=== PATIENT | female | born 1965 | race African-American/Black ===

== ENCOUNTER 2022-05-24 05:32 | Inpatient (IN) | payer MEDICAID, OTHER ==
[~2022-05-24] VITALS: Ht 167.6 cm; Wt 105.7 kg
[~2022-05-24 05:32] MED LIST: ALBUTEROL INH; ATROVENT INH; DOCU-138 PO; FERR142T6 PO; FLUC100T42 MT; FURO80TA3 PO; HYDR-1348 PO; HYDR-4001 MT; LEVO100T9 PO; LEVO500T2 PO; LISI10TA26 PO; P20 PO; POTA10CA42 PO; TOPUD PO
[2022-05-24 09:34] LABS: BASOPHILS % 0.2 % (0.0-2.0); EOSINOPHILS % 0.1 % (0.0-5.0); HEMATOCRIT. 36.4 % (36.0-48.0); HEMOGLOBIN. 12.1 g/dL (12.0-16.0); LYMPHOCYTES % 12.8 % (20.0-50.0); MEAN CORPUSCULAR HEMOGLOBIN 30.1 pg (28.0-32.0); MEAN CORPUSCULAR VOLUME 90.6 fL (81.0-99.0); MEAN PLATELET VOLUME 7.4 fl (7.4-10.4); NEUTROPHILS % 81.9 % (40.0-76.0); PLATELET 194 x1000/uL (130-400); RED BLOOD CELL COUNT 4.02 mill/uL (4.2-5.4); RED CELL DISTRIBUTION WIDTH 24.5 % (11.6-14.6)
[2022-05-24 10:13] LABS: PLATELET ESTIMATE NORMAL
[2022-05-24] MEDS ORDERED: PIPERACILLIN/TAZ 3.375G PREMIX 50 ML IV ONE (10:15)
[2022-05-24] MEDS ORDERED: VANCOMYCIN 1G PREMIX 200 ML IV ONE (10:15)
[2022-05-24] MEDS ORDERED: KETOROLAC 30MG/ML VIAL IV ONE (11:15)
[2022-05-24 12:00] VITALS: BP 135/77
[2022-05-24 14:00] VITALS: BP 135/77
[2022-05-24] MEDS ORDERED: IPRATROPIUM/ALBUTEROL 0.5-3(2.5)MG/3ML NEB HHN PRN (14:30)
[2022-05-24] MEDS ORDERED: DOCUSATE SODIUM 100MG CAPSULE PO PRN (14:30)
[2022-05-24] MEDS ORDERED: CLONIDINE 0.1MG TABLET PO PRN (14:30)
[2022-05-24] MEDS ORDERED: ACETAMINOPHEN 325MG TABLET PO PRN (14:30)
[2022-05-24] MEDS ORDERED: ENOXAPARIN 40MG/0.4ML SYR SUBCUT SCH (14:30)
[2022-05-24] MEDS ORDERED: ONDANSETRON HCL 4MG/2ML INJ IV PRN (14:30)
[2022-05-24] MEDS ORDERED: MAGNESIUM/ALUMINUM HYDROXIDE/SIMETHICONE 30ML UDC PO PRN (14:30)
[2022-05-24] MEDS: HYDROCODONE/ACETAMINOPHEN 5/325MG TABLET PO PRN ×2 (15:03→20:38)
[2022-05-24 15:24] LABS: INR 1.2
[2022-05-24 16:00] VITALS: BP 133/75
[2022-05-24] MEDS ORDERED: NALOXONE HCL 0.4MG/ML VIAL IV PRN (16:00)
[2022-05-24 17:18] LABS: CHLORIDE 104 mEq/L (98-107)
[2022-05-24] MEDS: ENOXAPARIN 30MG/0.3ML SYR SUBCUT SCH (19:11)
[2022-05-24] MEDS ORDERED: POTASSIUM CHLORIDE INJ 40 MEQ in DEXT 5% WATER 500 ML IV ONE (19:30)
[2022-05-24] MEDS ORDERED: POTASSIUM CHLORIDE 20MEQ TABLET SR PO NR (19:45)
[2022-05-24 19:52] VITALS: BP 118/68
[2022-05-24] MEDS ORDERED: VANCOMYCIN 750MG PREMIX 150 ML IV NR (21:00)
[2022-05-24] MEDS: PIPERACILLIN/TAZOBACTAM 3.375G in DEXT 5% WATER 50ML IV SCH (21:15)
[2022-05-24] MEDS: KCL 20MEQ/100ML X 2 FOR TOTAL KCL 40MEQ/200ML IV SCH ×2 (21:15→23:05)
[2022-05-24] MEDS ORDERED: PIPERACILLIN/TAZOBACTAM 3.375GM/50ML PREMIX IV ONE (22:00)
[2022-05-25] VITALS: BP 118/67
[2022-05-25] MEDS: HYDROCODONE/ACETAMINOPHEN 5/325MG TABLET PO PRN ×4 (02:36→23:08)
[2022-05-25 04:00] VITALS: BP 95/61
[2022-05-25] MEDS: ENOXAPARIN 30MG/0.3ML SYR SUBCUT SCH ×2 (06:39→18:15)
[2022-05-25] MEDS: PIPERACILLIN/TAZOBACTAM 3.375G in DEXT 5% WATER 50ML IV SCH ×3 (06:39→22:00)
[2022-05-25] MEDS: OMEPRAZOLE 20MG CAPSULE EXTENDED RELEASE PO SCH ×2 (07:12→08:51)
[2022-05-25 08:18] VITALS: BP 130/76
[2022-05-25] MEDS ORDERED: VANCOMYCIN 1G PREMIX 200 ML IV SCH (09:00)
[2022-05-25 11:10] LABS: HDL CHOLESTEROL 32 mg/dL (40-59); LDL CHOLESTEROL 29 mg/dL (5-100); T4 FREE 0.28 ng/dL (0.76-1.46)
[2022-05-25 12:00] VITALS: BP_SYST 131; BP_SYST 160; BP_DIAS 104; BP_DIAS 68
[2022-05-25] MEDS ORDERED: LIDOCAINE HCL 1% 10 MG/ML 10ML VIAL ONE (13:41)
[2022-05-25] MEDS ORDERED: LIDOCAINE HCL 1% 30ML VIAL (10MG/ML) ONE (14:04)
[2022-05-25 16:00] VITALS: BP 136/81
[2022-05-25 17:57] LABS: BASOPHILS % 0.2 % (0.0-2.0); EOSINOPHILS % 0.1 % (0.0-5.0); HEMATOCRIT. 33.4 % (36.0-48.0); LYMPHOCYTES % 20.7 % (20.0-50.0); MEAN CORPUSCULAR HEMOGLOBIN 30.9 pg (28.0-32.0); MEAN CORPUSCULAR VOLUME 93.8 fL (81.0-99.0); MEAN PLATELET VOLUME 7.1 fl (7.4-10.4); MONOCYTES % 7.5 % (2.0-8.0); NEUTROPHILS % 71.5 % (40.0-76.0); PLATELET 113 x1000/uL (130-400); RED BLOOD CELL COUNT 3.56 mill/uL (4.2-5.4); RED CELL DISTRIBUTION WIDTH 23.4 % (11.6-14.6)
[2022-05-25 18:19] LABS: CHLORIDE 102 mEq/L (98-107)
[2022-05-25] MEDS ORDERED: POTASSIUM CHLORIDE 20MEQ TABLET SR PO NR (20:00)
[2022-05-26] MEDS: ENOXAPARIN 30MG/0.3ML SYR SUBCUT SCH ×2 (06:00→19:01)
[2022-05-26] MEDS: PIPERACILLIN/TAZOBACTAM 3.375G in DEXT 5% WATER 50ML IV SCH ×3 (07:06→21:36)
[2022-05-26] MEDS ORDERED: LEVOTHYROXINE SODIUM 100MCG TABLET PO SCH (07:20)
[2022-05-26 07:51] LABS: BASOPHILS % 0.1 % (0.0-2.0); EOSINOPHILS % 0.4 % (0.0-5.0); HEMATOCRIT. 28.3 % (36.0-48.0); HEMOGLOBIN. 9.6 g/dL (12.0-16.0); LYMPHOCYTES % 23.5 % (20.0-50.0); MEAN CORPUSCULAR HEMOGLOBIN 30.7 pg (28.0-32.0); MEAN CORPUSCULAR VOLUME 90.5 fL (81.0-99.0); MEAN PLATELET VOLUME 7.5 fl (7.4-10.4); MONOCYTES % 8.3 % (2.0-8.0); NEUTROPHILS % 67.7 % (40.0-76.0); PLATELET 123 x1000/uL (130-400); RED BLOOD CELL COUNT 3.13 mill/uL (4.2-5.4); RED CELL DISTRIBUTION WIDTH 23.7 % (11.6-14.6)
[2022-05-26 08:00] VITALS: BP 136/82
[2022-05-26 08:52] LABS: PHOSPHORUS 1.7 mg/dL (2.5-4.9)
[2022-05-26] MEDS ORDERED: POTASSIUM CHLORIDE 20MEQ TABLET SR PO NR (09:30)
[2022-05-26] MEDS: LEVOTHYROXINE SODIUM 200MCG TABLET PO SCH (10:37)
[2022-05-26] MEDS: HYDROCODONE/ACETAMINOPHEN 5/325MG TABLET PO PRN ×3 (10:40→21:36)
[2022-05-26 11:46] LABS: CLARITY URINE CLEAR (CLEAR); COLOR URINE DARK YELLOW (YELLOW); KETONES URINE NEGATIVE (NEGATIVE); LEUKOCYTE ESTERASE URINE TRACE (NEGATIVE); NITRITE URINE POSITIVE (NEGATIVE); OCCULT BLOOD URINE TRACE (NEGATIVE); PH URINE 5.5 (4.5-8.0); PROTEIN URINE TRACE (NEGATIVE); SPECIFIC GRAVITY URINE 1.018 (1.005-1.030); UROBILINOGEN URINE 0.2 E.U./dL (0.2-1.0)
[2022-05-26 12:00] VITALS: BP 119/81
[2022-05-26 16:00] VITALS: BP 116/78
[2022-05-26 20:00] VITALS: BP 122/74
[2022-05-27] VITALS: BP 130/72
[2022-05-27] MEDS: HYDROCODONE/ACETAMINOPHEN 5/325MG TABLET PO PRN ×4 (01:37→21:20)
[2022-05-27 04:00] VITALS: BP 134/74
[2022-05-27] MEDS: PIPERACILLIN/TAZOBACTAM 3.375G in DEXT 5% WATER 50ML IV SCH ×3 (07:08→21:18)
[2022-05-27] MEDS: LEVOTHYROXINE SODIUM 200MCG TABLET PO SCH (07:09)
[2022-05-27] MEDS: OMEPRAZOLE 20MG CAPSULE EXTENDED RELEASE PO SCH (07:09)
[2022-05-27] MEDS: ENOXAPARIN 30MG/0.3ML SYR SUBCUT SCH (07:09)
[2022-05-27 08:00] VITALS: BP 114/63
[2022-05-27] MEDS: GUAIFENESIN-DM 200MG-20MG/10ML UDC PO PRN ×2 (10:02→21:18)
[2022-05-27 12:00] VITALS: BP 120/75
[2022-05-27 12:34] LABS: BASOPHILS % 0.1 % (0.0-2.0); EOSINOPHILS % 0.2 % (0.0-5.0); HEMATOCRIT. 25.4 % (36.0-48.0); HEMOGLOBIN. 8.3 g/dL (12.0-16.0); LYMPHOCYTES % 31.4 % (20.0-50.0); MEAN CORPUSCULAR HEMOGLOBIN 30.7 pg (28.0-32.0); MEAN CORPUSCULAR VOLUME 93.8 fL (81.0-99.0); MEAN PLATELET VOLUME 7.4 fl (7.4-10.4); MONOCYTES % 10.4 % (2.0-8.0); NEUTROPHILS % 57.9 % (40.0-76.0); PLATELET 99 x1000/uL (130-400); RED CELL DISTRIBUTION WIDTH 23.1 % (11.6-14.6)
[2022-05-27 12:45] LABS: CHLORIDE 102 mEq/L (98-107)
[2022-05-27 13:18] LABS: VITAMIN B12 SERUM 1101 pg/mL (211-911)
[2022-05-27] MEDS ORDERED: POTASSIUM CHLORIDE 20MEQ TABLET SR PO NR (14:15)
[2022-05-27 16:00] VITALS: BP 134/84
[2022-05-27 17:01] LABS: TOTAL IRON BINDING CAPACITY 110 ug/dL (250-450)
[2022-05-27 20:00] VITALS: BP 132/88
[2022-05-28] VITALS: BP 141/90
[2022-05-28] MEDS: HYDROCODONE/ACETAMINOPHEN 5/325MG TABLET PO PRN ×4 (01:46→21:06)
[2022-05-28] MEDS: GUAIFENESIN-DM 200MG-20MG/10ML UDC PO PRN ×4 (01:46→21:07)
[2022-05-28 04:00] VITALS: BP 120/72
[2022-05-28 05:26] LABS: BASOPHILS % 0.3 % (0.0-2.0); EOSINOPHILS % 0.3 % (0.0-5.0); HEMATOCRIT. 29.4 % (36.0-48.0); HEMOGLOBIN. 9.8 g/dL (12.0-16.0); LYMPHOCYTES % 26.5 % (20.0-50.0); MEAN CORPUSCULAR HEMOGLOBIN 30.6 pg (28.0-32.0); MEAN CORPUSCULAR VOLUME 91.8 fL (81.0-99.0); MEAN PLATELET VOLUME 7.6 fl (7.4-10.4); MONOCYTES % 12.8 % (2.0-8.0); NEUTROPHILS % 60.1 % (40.0-76.0); PLATELET 126 x1000/uL (130-400); RED CELL DISTRIBUTION WIDTH 23.4 % (11.6-14.6)
[2022-05-28 05:46] LABS: CHLORIDE 102 mEq/L (98-107)
[2022-05-28] MEDS: PIPERACILLIN/TAZOBACTAM 3.375G in DEXT 5% WATER 50ML IV SCH ×3 (05:51→21:06)
[2022-05-28 08:00] VITALS: BP 127/82
[2022-05-28] MEDS: LEVOTHYROXINE SODIUM 200MCG TABLET PO SCH (09:43)
[2022-05-28] MEDS: OMEPRAZOLE 20MG CAPSULE EXTENDED RELEASE PO SCH (09:43)
[2022-05-28 12:00] VITALS: BP 130/88
[2022-05-28 16:00] VITALS: BP 128/84
[2022-05-28] MEDS ORDERED: LEVO750T68 MT (18:32)
[2022-05-28] MEDS ORDERED: LEVO100T9 PO (18:32)
[2022-05-28 20:00] VITALS: BP 127/74
[2022-05-29] VITALS: BP 127/79
[2022-05-29] MEDS: HYDROCODONE/ACETAMINOPHEN 5/325MG TABLET PO PRN ×4 (01:08→13:07)
[2022-05-29 04:00] VITALS: BP 121/73
[2022-05-29] MEDS: PIPERACILLIN/TAZOBACTAM 3.375G in DEXT 5% WATER 50ML IV SCH ×3 (05:49→20:23)
[2022-05-29] MEDS: OMEPRAZOLE 20MG CAPSULE EXTENDED RELEASE PO SCH (05:50)
[2022-05-29] MEDS: LEVOTHYROXINE SODIUM 200MCG TABLET PO SCH (05:50)
[2022-05-29 08:00] VITALS: BP 128/84
[2022-05-29] MEDS: GUAIFENESIN-DM 200MG-20MG/10ML UDC PO PRN ×2 (09:29→20:23)
[2022-05-29 12:00] VITALS: BP 143/78
[2022-05-29 16:00] VITALS: BP 122/83
[2022-05-29 20:00] VITALS: BP 125/87
[2022-05-29] MEDS ORDERED: NALOXONE HCL 0.4MG/ML VIAL IV PRN (20:15)
[2022-05-29] MEDS: HYDROCODONE/ACETAMINOPHEN 10/325MG TABLET PO PRN (20:23)
[2022-05-30] VITALS (7 sets, daily range): BP systolic 110–156; BP diastolic 72–93
[2022-05-30] MEDS: GUAIFENESIN-DM 200MG-20MG/10ML UDC PO PRN ×2 (00:38→09:02)
[2022-05-30] MEDS: HYDROCODONE/ACETAMINOPHEN 10/325MG TABLET PO PRN ×5 (00:38→18:31)
[2022-05-30] MEDS: PIPERACILLIN/TAZOBACTAM 3.375G in DEXT 5% WATER 50ML IV SCH ×3 (06:00→21:39)
[2022-05-30] MEDS: OMEPRAZOLE 20MG CAPSULE EXTENDED RELEASE PO SCH (06:01)
[2022-05-30] MEDS: LEVOTHYROXINE SODIUM 200MCG TABLET PO SCH (06:02)
[2022-05-31] VITALS: BP 120/76
[2022-05-31 04:00] VITALS: BP 133/69
[2022-05-31] MEDS: PIPERACILLIN/TAZOBACTAM 3.375G in DEXT 5% WATER 50ML IV SCH ×3 (06:29→21:39)
[2022-05-31] MEDS: LEVOTHYROXINE SODIUM 200MCG TABLET PO SCH (06:30)
[2022-05-31 08:00] VITALS: BP 140/88
[2022-05-31] MEDS: HYDROCODONE/ACETAMINOPHEN 10/325MG TABLET PO PRN ×2 (08:54→14:01)
[2022-05-31 12:00] VITALS: BP 159/90
[2022-05-31 20:00] VITALS: BP 132/71
[2022-06-01] VITALS: BP 135/68
[2022-06-01 04:00] VITALS: BP 153/85
[2022-06-01] MEDS: CEFTRIAXONE 2 G in DEXTROSE 5% WATER 50 ML IV SCH (06:05)
[2022-06-01] MEDS: LEVOTHYROXINE SODIUM 200MCG TABLET PO SCH ×2 (06:31→09:49)
[2022-06-01 07:52] LABS: CHLORIDE 104 mEq/L (98-107)
[2022-06-01 08:04] LABS: BASOPHILS % 0.3 % (0.0-2.0); EOSINOPHILS % 0.2 % (0.0-5.0); HEMATOCRIT. 29.4 % (36.0-48.0); HEMOGLOBIN. 9.7 g/dL (12.0-16.0); LYMPHOCYTES % 18.4 % (20.0-50.0); MEAN CORPUSCULAR HEMOGLOBIN 30.7 pg (28.0-32.0); MEAN CORPUSCULAR VOLUME 93.2 fL (81.0-99.0); MEAN PLATELET VOLUME 7.7 fl (7.4-10.4); NEUTROPHILS % 68.1 % (40.0-76.0); PLATELET 166 x1000/uL (130-400); RED BLOOD CELL COUNT 3.16 mill/uL (4.2-5.4); RED CELL DISTRIBUTION WIDTH 22.8 % (11.6-14.6)
[2022-06-01 08:12] VITALS: BP 166/99
[2022-06-01] MEDS: HYDROCODONE/ACETAMINOPHEN 10/325MG TABLET PO PRN ×2 (09:52→20:41)
[2022-06-01 12:00] VITALS: BP 150/80
[2022-06-01 16:02] VITALS: BP 154/86
[2022-06-01] MEDS ORDERED: POTASSIUM CHLORIDE 20MEQ TABLET SR PO NR (18:30)
[2022-06-01 20:00] VITALS: BP 148/74
[2022-06-02] VITALS: BP 147/78
[2022-06-02] MEDS: HYDROCODONE/ACETAMINOPHEN 10/325MG TABLET PO PRN ×3 (03:09→14:29)
[2022-06-02 04:00] VITALS: BP 151/95
[2022-06-02] MEDS: CEFTRIAXONE 2 G in DEXTROSE 5% WATER 50 ML IV SCH (06:45)
[2022-06-02] MEDS: LEVOTHYROXINE SODIUM 200MCG TABLET PO SCH (06:45)
[2022-06-02 07:30] LABS: BASOPHILS % 0.2 % (0.0-2.0); EOSINOPHILS % 0.2 % (0.0-5.0); HEMATOCRIT. 27.1 % (36.0-48.0); LYMPHOCYTES % 23.2 % (20.0-50.0); MEAN CORPUSCULAR VOLUME 93.6 fL (81.0-99.0); MEAN PLATELET VOLUME 7.8 fl (7.4-10.4); MONOCYTES % 12.3 % (2.0-8.0); NEUTROPHILS % 64.1 % (40.0-76.0); PLATELET 161 x1000/uL (130-400); RED CELL DISTRIBUTION WIDTH 23.9 % (11.6-14.6)
[2022-06-02 07:39] LABS: CHLORIDE 101 mEq/L (98-107)
[2022-06-02 08:13] VITALS: BP 137/87
[2022-06-02] MEDS ORDERED: POTASSIUM CHLORIDE 20MEQ TABLET SR PO NR (08:15)
[2022-06-02 12:37] VITALS: BP 154/80
[2022-06-02 15:50] VITALS: BP 143/82
[2022-06-02 20:00] VITALS: BP 137/96
[2022-06-03] VITALS: BP 144/96
[2022-06-03] MEDS: HYDROCODONE/ACETAMINOPHEN 10/325MG TABLET PO PRN ×3 (01:56→16:24)
[2022-06-03 04:00] VITALS: BP 126/101
[2022-06-03] MEDS: CEFTRIAXONE 2 G in DEXTROSE 5% WATER 50 ML IV SCH (06:37)
[2022-06-03] MEDS: LEVOTHYROXINE SODIUM 200MCG TABLET PO SCH (06:37)
[2022-06-03 08:00] VITALS: BP 135/73
[2022-06-03 09:10] LABS: BASOPHILS % 0.6 % (0.0-2.0); EOSINOPHILS % 0.1 % (0.0-5.0); HEMATOCRIT. 31.1 % (36.0-48.0); HEMOGLOBIN. 10.1 g/dL (12.0-16.0); LYMPHOCYTES % 29.7 % (20.0-50.0); MEAN CORPUSCULAR VOLUME 95.3 fL (81.0-99.0); MEAN PLATELET VOLUME 8.1 fl (7.4-10.4); MONOCYTES % 7.3 % (2.0-8.0); NEUTROPHILS % 62.3 % (40.0-76.0); PLATELET 208 x1000/uL (130-400); RED BLOOD CELL COUNT 3.26 mill/uL (4.2-5.4); RED CELL DISTRIBUTION WIDTH 24.4 % (11.6-14.6)
[2022-06-03 09:20] LABS: CHLORIDE 102 mEq/L (98-107)
[2022-06-03] MEDS: RISPERIDONE 0.5MG TABLET PO SCH ×2 (12:13→16:24)
[2022-06-03 16:00] VITALS: BP 160/106
[2022-06-03 17:33] VITALS: BP 137/83
== END 2022-06-03 18:54 | disposition home health service (06) | DRG 720 ==
LOC: ER 05:34 → 6WST 11:18 → EDBEDREQTM 11:21 → EDBEDREQ 11:21 → EDBEDREQSVC 11:21 → ENRESERV 11:45
PROVIDERS: ADMIT Internal Medicine; ATTEND Internal Medicine
PROC: 02HV33Z Insertion of Infusion Device into Superior Vena Cava, Percutaneous Approach (ICD-10-PCS; principal; 2022-05-25)
PROC: B548ZZA Ultrasonography of Superior Vena Cava, Guidance (ICD-10-PCS; 2022-05-25)
DX: A41.51 Sepsis due to Escherichia coli [E. coli] (principal); N17.0 Acute kidney failure with tubular necrosis; E43 Unspecified severe protein-calorie malnutrition; D69.6 Thrombocytopenia, unspecified; L89.156 Pressure-induced deep tissue damage of sacral region; I11.0 Hypertensive heart disease with heart failure; E88.09 Other disorders of plasma-protein metabolism, not elsewhere classified; I50.9 Heart failure, unspecified; F29 Unspecified psychosis not due to a substance or known physiological condition; G40.909 Epilepsy, unspecified, not intractable, without status epilepticus; R53.81 Other malaise; J44.9 Chronic obstructive pulmonary disease, unspecified; E03.9 Hypothyroidism, unspecified; E87.6 Hypokalemia; T50.1X5A Adverse effect of loop [high-ceiling] diuretics, initial encounter; E66.01 Morbid (severe) obesity due to excess calories; K43.9 Ventral hernia without obstruction or gangrene; D64.9 Anemia, unspecified; F41.9 Anxiety disorder, unspecified; F32.A Depression, unspecified; K76.0 Fatty (change of) liver, not elsewhere classified; Z20.822 Contact with and (suspected) exposure to COVID-19; Z88.0 Allergy status to penicillin; Z68.37 Body mass index [BMI] 37.0-37.9, adult; Z63.4 Disappearance and death of family member; Z79.899 Other long term (current) drug therapy; Z98.84 Bariatric surgery status; Z90.710 Acquired absence of both cervix and uterus; Z90.49 Acquired absence of other specified parts of digestive tract; Z91.14 Patient's other noncompliance with medication regimen; Y92.89 Other specified places as the place of occurrence of the external cause
CPT/HCPCS: 36415; 36573; 71045; 74176; 76700; 76830; 76856; 80048; 80053; 80061; 80076; 81003; 82040; 82088; 82330; 82533; 82607; 82728; 82746; 83540; 83550; 83605; 83735; 84100; 84145; 84244; 84439; 84443; 84484; 85025; 85044; 86376; 87077; 87186; 87426; 93306; 93970; 97110; 97116; 97162; 97166; 97530; 97535; 99291; A6261; C1725; C1893; J0696; J1650; J1885; J2543; J3370; J3480; J3490; J7060

== ENCOUNTER 2022-06-06 11:42 | Inpatient (IN) | payer MEDICAID, OTHER ==
[~2022-06-06] VITALS: Ht 167.6 cm; Wt 113.9 kg
[~2022-06-06 11:42] MED LIST changes: -LEVO500T2 PO; +LEVO750T68 MT
[2022-06-06] MEDS ORDERED: HALOPERIDOL LACTATE 5MG/ML VIAL IM ONE ×4 (14:30→18:15)
[2022-06-06] MEDS ORDERED: LORAZEPAM 2MG/ML CPJ IM ONE ×3 (14:30→18:15)
[2022-06-06] MEDS ORDERED: DIPHENHYDRAMINE 50MG/ML VIAL IM ONE ×3 (14:30→18:15)
[2022-06-06 19:50] LABS: BASOPHILS % 0.1 % (0.0-2.0); HEMATOCRIT. 29.6 % (36.0-48.0); HEMOGLOBIN. 9.8 g/dL (12.0-16.0); LYMPHOCYTES % 15.4 % (20.0-50.0); MEAN CORPUSCULAR HEMOGLOBIN 31.7 pg (28.0-32.0); MEAN CORPUSCULAR VOLUME 95.8 fL (81.0-99.0); MEAN PLATELET VOLUME 8.1 fl (7.4-10.4); MONOCYTES % 6.2 % (2.0-8.0); NEUTROPHILS % 78.3 % (40.0-76.0); PLATELET 175 x1000/uL (130-400); RED BLOOD CELL COUNT 3.09 mill/uL (4.2-5.4); RED CELL DISTRIBUTION WIDTH 24.8 % (11.6-14.6)
[2022-06-06 19:51] LABS: CHLORIDE 100 mEq/L (98-107)
[2022-06-06 19:55] LABS: ETHANOL BLOOD < 10 mg/dL
[2022-06-07 19:41] LABS: *AMPHETAMINES SCREEN URINE NEGATIVE (NEGATIVE); *BARBITURATES SCREEN URINE NEGATIVE (NEGATIVE); *BENZODIAZEPINES SCREEN URINE NEGATIVE (NEGATIVE); *COCAINE SCREEN URINE NEGATIVE (NEGATIVE); CANNABINOID URINE SCREEN NEGATIVE (NEGATIVE); METHADONE URINE SCREEN NEGATIVE (NEGATIVE); OPIATES URINE SCREEN PRESUMTIVE POSITIVE (NEGATIVE); PHENCYCLIDINE URINE SCREEN NEGATIVE (NEGATIVE)
[2022-06-07] MEDS: RISPERIDONE 1MG TABLET PO SCH (23:07)
[2022-06-08] MEDS: RISPERIDONE 1MG TABLET PO SCH ×2 (09:23→21:15)
[2022-06-09] MEDS: RISPERIDONE 1MG TABLET PO SCH ×2 (09:00→21:00)
[2022-06-09] MEDS ORDERED: ACETAMINOPHEN 325MG TABLET PO ONE (22:45)
[2022-06-10] MEDS: RISPERIDONE 1MG TABLET PO SCH ×2 (09:00→21:00)
[2022-06-11] MEDS: RISPERIDONE 1MG TABLET PO SCH ×2 (09:00→21:39)
[2022-06-11] MEDS ORDERED: SODIUM CHLORIDE 0.9% 1,000 ML IV ONE (12:00)
[2022-06-11] MEDS ORDERED: NALOXONE HCL 0.4MG/ML VIAL IV PRN (16:00)
[2022-06-11] MEDS: HYDROCODONE/ACETAMINOPHEN 10/325MG TABLET PO PRN ×2 (16:18→21:39)
[2022-06-12] MEDS ORDERED: LEVO200T8 MT (01:23)
[2022-06-12] MEDS ORDERED: FURO80TA87 PO (01:23)
[2022-06-12 01:28] VITALS: BP 140/86
[2022-06-12 08:00] VITALS: BP 145/90
[2022-06-12] MEDS ORDERED: ONDANSETRON HCL 4MG/2ML INJ IV PRN (08:15)
[2022-06-12] MEDS: RISPERIDONE 1MG TABLET PO SCH ×2 (09:00→20:49)
[2022-06-12] MEDS: HYDROCODONE/ACETAMINOPHEN 10/325MG TABLET PO PRN ×3 (09:28→20:49)
[2022-06-12 11:36] LABS: BASOPHILS % 0.3 % (0.0-2.0); EOSINOPHILS % 0.4 % (0.0-5.0); HEMATOCRIT. 25.9 % (36.0-48.0); HEMOGLOBIN. 8.5 g/dL (12.0-16.0); LYMPHOCYTES % 28.8 % (20.0-50.0); MEAN CORPUSCULAR HEMOGLOBIN 32.3 pg (28.0-32.0); MEAN CORPUSCULAR VOLUME 97.9 fL (81.0-99.0); MEAN PLATELET VOLUME 7.4 fl (7.4-10.4); MONOCYTES % 10.2 % (2.0-8.0); NEUTROPHILS % 60.3 % (40.0-76.0); PLATELET 139 x1000/uL (130-400); RED BLOOD CELL COUNT 2.65 mill/uL (4.2-5.4); RED CELL DISTRIBUTION WIDTH 24.9 % (11.6-14.6)
[2022-06-12 12:00] VITALS: BP 136/78
[2022-06-12 12:20] LABS: CHLORIDE 109 mEq/L (98-107)
[2022-06-12 16:00] VITALS: BP 143/77
[2022-06-12] MEDS ORDERED: IPRATROPIUM/ALBUTEROL 0.5-3(2.5)MG/3ML NEB HHN PRN (17:15)
[2022-06-12 20:00] VITALS: BP 131/80
[2022-06-13] VITALS: BP 122/75
[2022-06-13] MEDS: ZOLPIDEM TARTRATE 5MG TABLET PO PRN ×2 (02:16→20:56)
[2022-06-13] MEDS: HYDROCODONE/ACETAMINOPHEN 10/325MG TABLET PO PRN ×4 (02:16→20:56)
[2022-06-13 04:00] VITALS: BP 166/76
[2022-06-13 08:00] VITALS: BP 143/89
[2022-06-13] MEDS: RISPERIDONE 1MG TABLET PO SCH ×2 (08:39→20:56)
[2022-06-13] MEDS ORDERED: POTASSIUM CHLORIDE 20MEQ TABLET SR PO NR (10:45)
[2022-06-13 12:00] VITALS: BP 145/80
[2022-06-13 16:00] VITALS: BP 112/64
[2022-06-13 20:00] VITALS: BP 112/64
[2022-06-14] VITALS: BP 138/86
[2022-06-14 04:00] VITALS: BP 122/68
[2022-06-14 08:00] VITALS: BP 151/82
[2022-06-14] MEDS: RISPERIDONE 1MG TABLET PO SCH ×2 (09:37→20:37)
[2022-06-14] MEDS: HYDROCODONE/ACETAMINOPHEN 10/325MG TABLET PO PRN ×3 (09:48→20:37)
[2022-06-14 12:00] VITALS: BP 147/72
[2022-06-14] MEDS: ZOLPIDEM TARTRATE 5MG TABLET PO PRN (16:03)
[2022-06-14 20:00] VITALS: BP 113/74
[2022-06-15] VITALS: BP 143/86
[2022-06-15 04:00] VITALS: BP 156/80
[2022-06-15] MEDS: RISPERIDONE 1MG TABLET PO SCH ×2 (08:50→21:00)
[2022-06-15] MEDS: HYDROCODONE/ACETAMINOPHEN 10/325MG TABLET PO PRN ×3 (08:53→22:35)
[2022-06-15 20:00] VITALS: BP 138/77
[2022-06-15] MEDS: ZOLPIDEM TARTRATE 5MG TABLET PO PRN (22:19)
[2022-06-16] VITALS: BP 135/77
[2022-06-16 04:00] VITALS: BP 138/80
[2022-06-16 08:00] VITALS: BP 175/95
[2022-06-16] MEDS: RISPERIDONE 1MG TABLET PO SCH ×2 (09:23→21:52)
[2022-06-16] MEDS: HYDROCODONE/ACETAMINOPHEN 10/325MG TABLET PO PRN ×3 (11:22→21:58)
[2022-06-16 12:00] VITALS: BP 129/60
[2022-06-16 16:00] VITALS: BP 128/60
[2022-06-16] MEDS ORDERED: NALOXONE HCL 0.4MG/ML VIAL IV PRN (16:45)
[2022-06-16 20:00] VITALS: BP 124/77
[2022-06-16] MEDS: ZOLPIDEM TARTRATE 5MG TABLET PO PRN (21:52)
[2022-06-17] VITALS: BP 121/77
[2022-06-17 04:00] VITALS: BP 119/70
[2022-06-17] MEDS: RISPERIDONE 1MG TABLET PO SCH ×2 (08:41→21:13)
[2022-06-17] MEDS: HYDROCODONE/ACETAMINOPHEN 10/325MG TABLET PO PRN ×3 (09:06→21:15)
[2022-06-17 12:00] VITALS: BP 148/75
[2022-06-17] MEDS: ZOLPIDEM TARTRATE 5MG TABLET PO PRN (22:20)
[2022-06-18 00:05] LABS: BASOPHILS % 0.4 % (0.0-2.0); EOSINOPHILS % 0.1 % (0.0-5.0); HEMATOCRIT. 26.3 % (36.0-48.0); HEMOGLOBIN. 8.5 g/dL (12.0-16.0); LYMPHOCYTES % 27.3 % (20.0-50.0); MEAN CORPUSCULAR HEMOGLOBIN 32.1 pg (28.0-32.0); MEAN CORPUSCULAR VOLUME 98.9 fL (81.0-99.0); MONOCYTES % 10.8 % (2.0-8.0); NEUTROPHILS % 61.4 % (40.0-76.0); PLATELET 169 x1000/uL (130-400); RED BLOOD CELL COUNT 2.66 mill/uL (4.2-5.4); RED CELL DISTRIBUTION WIDTH 22.6 % (11.6-14.6)
[2022-06-18 00:19] LABS: CHLORIDE 103 mEq/L (98-107)
[2022-06-18] MEDS: HYDROCODONE/ACETAMINOPHEN 10/325MG TABLET PO PRN ×4 (04:12→22:47)
[2022-06-18 06:44] VITALS: BP 112/70
[2022-06-18 08:00] VITALS: BP 126/72
[2022-06-18] MEDS: RISPERIDONE 1MG TABLET PO SCH ×2 (08:00→20:46)
[2022-06-18 08:46] LABS: CHLORIDE 104 mEq/L (98-107)
[2022-06-18] MEDS ORDERED: FUROSEMIDE 40MG/4ML VIAL IVP SCH (09:00)
[2022-06-18 12:00] VITALS: BP 117/74
[2022-06-18 16:00] VITALS: BP 108/65
[2022-06-18 20:00] VITALS: BP 121/63
[2022-06-19] VITALS: BP 124/62
[2022-06-19] MEDS: ZOLPIDEM TARTRATE 5MG TABLET PO PRN (00:11)
[2022-06-19 04:00] VITALS: BP 134/74
[2022-06-19] MEDS: HYDROCODONE/ACETAMINOPHEN 10/325MG TABLET PO PRN ×3 (06:11→20:21)
[2022-06-19 08:00] VITALS: BP 114/66
[2022-06-19] MEDS: POTASSIUM CHLORIDE 20MEQ TABLET SR PO SCH (09:01)
[2022-06-19] MEDS: FUROSEMIDE 40MG/4ML VIAL IVP SCH ×2 (09:01→16:52)
[2022-06-19] MEDS: RISPERIDONE 1MG TABLET PO SCH ×2 (09:01→20:21)
[2022-06-19] MEDS ORDERED: METOLAZONE 2.5MG TABLET PO NR (10:30)
[2022-06-19] MEDS ORDERED: FURO-151 MT (12:15)
[2022-06-19] MEDS ORDERED: POTA-204 PO (12:15)
[2022-06-19] MEDS ORDERED: RISP1 PO (12:15)
[2022-06-19 16:00] VITALS: BP 140/91
[2022-06-19 18:00] VITALS: BP 140/91
[2022-06-19 20:00] VITALS: BP 159/77
[2022-06-20] VITALS: BP 133/73
[2022-06-20] MEDS: ZOLPIDEM TARTRATE 5MG TABLET PO PRN (00:22)
[2022-06-20 04:00] VITALS: BP 146/86
[2022-06-20] MEDS: HYDROCODONE/ACETAMINOPHEN 10/325MG TABLET PO PRN (07:00)
[2022-06-20] MEDS: FUROSEMIDE 40MG/4ML VIAL IVP SCH (09:00)
[2022-06-20 09:48] VITALS: BP 115/65
[2022-06-20] MEDS: POTASSIUM CHLORIDE 20MEQ TABLET SR PO SCH (10:01)
[2022-06-20] MEDS: RISPERIDONE 1MG TABLET PO SCH (10:01)
== END 2022-06-20 10:26 | disposition home health service (06) | DRG 194 ==
LOC: ER 11:42 → 6EST 14:23 → ENRESERV 06-11 22:30
PROVIDERS: ADMIT Internal Medicine; ATTEND Internal Medicine
DX: I11.0 Hypertensive heart disease with heart failure (principal); N17.0 Acute kidney failure with tubular necrosis; I50.33 Acute on chronic diastolic (congestive) heart failure; S81.812A Laceration without foreign body, left lower leg, initial encounter; E66.9 Obesity, unspecified; J44.9 Chronic obstructive pulmonary disease, unspecified; F20.9 Schizophrenia, unspecified; D64.9 Anemia, unspecified; Z20.822 Contact with and (suspected) exposure to COVID-19; G40.909 Epilepsy, unspecified, not intractable, without status epilepticus; Z68.41 Body mass index [BMI] 40.0-44.9, adult; Z73.6 Limitation of activities due to disability; Z88.8 Allergy status to other drugs, medicaments and biological substances; Z90.710 Acquired absence of both cervix and uterus; Z90.49 Acquired absence of other specified parts of digestive tract; Z79.899 Other long term (current) drug therapy; W18.30XA Fall on same level, unspecified, initial encounter; Y93.89 Activity, other specified; Y92.89 Other specified places as the place of occurrence of the external cause; Y99.8 Other external cause status
CPT/HCPCS: 36415; 80048; 80305; 80307; 80320; 80329; 82962; 85025; 87426; 93970; 96372; 97162; 97166; 99285; C9803; J1200; J1630; J1940; J2060; J7030; G0480

== ENCOUNTER 2022-06-29 11:40 | Emergency (ER) | payer OTHER ==
[~2022-06-29] VITALS: Ht 152.4 cm; Wt 114.0 kg
[~2022-06-29 11:40] MED LIST changes: -FLUC100T42 MT; +FURO-151 MT; +LEVO200T8 MT; -LEVO750T68 MT; -LISI10TA26 PO; +POTA-204 PO; +RISP1 PO
[2022-06-29] MEDS ORDERED: ACETAMINOPHEN 325MG TABLET PO ONE (13:00)
[2022-06-29] MEDS ORDERED: ACETAMINOPHEN 325MG TABLET PO NR (15:30)
[2022-06-29] MEDS ORDERED: OXYCODONE HCL/ACETAMINOPHEN 5/325MG TABLET PO ONE (16:30)
[2022-06-29] MEDS ORDERED: MIDAZOLAM HCL 2 MG/2 ML VIAL IV NR (16:30)
[2022-06-29] MEDS ORDERED: MIDAZOLAM HCL 2 MG/2 ML VIAL IM NR (16:45)
[2022-06-29] MEDS ORDERED: DIPHENHYDRAMINE 50MG/ML VIAL IV ONE (17:15)
[2022-06-29] MEDS ORDERED: MORPHINE SULFATE 4 MG/ML CPJ (NOT FOR IM USE) IV ONE (17:15)
[2022-06-30] MEDS ORDERED: KETOROLAC 30MG/ML VIAL IV ONE (01:30)
[2022-06-30] MEDS ORDERED: MORPHINE SULFATE 4 MG/ML CPJ (NOT FOR IM USE) IV ONE (01:30)
[2022-06-30] MEDS ORDERED: DIPHENHYDRAMINE 50MG/ML VIAL IV ONE (01:30)
[2022-06-30] MEDS ORDERED: KETOROLAC 60MG/2ML VIAL IM ONE (02:00)
[2022-06-30] MEDS ORDERED: HYDROCODONE/ACETAMINOPHEN 5/325MG TABLET PO ONE (02:00)
[2022-06-30 10:53] VITALS: BP 139/82
== END 2022-06-30 10:55 | disposition home or self-care (01) ==
LOC: ER 11:40
DX: R53.1 Weakness (principal); I11.0 Hypertensive heart disease with heart failure; I50.9 Heart failure, unspecified; J44.9 Chronic obstructive pulmonary disease, unspecified; G40.909 Epilepsy, unspecified, not intractable, without status epilepticus; W01.0XXA Fall on same level from slipping, tripping and stumbling without subsequent striking against object, initial encounter; Y93.89 Activity, other specified; Y92.000 Kitchen of unspecified non-institutional (private) residence as the place of occurrence of the external cause; Z88.6 Allergy status to analgesic agent; Z86.73 Personal history of transient ischemic attack (TIA), and cerebral infarction without residual deficits; Z79.899 Other long term (current) drug therapy; Z90.710 Acquired absence of both cervix and uterus; Z91.018 Allergy to other foods; Z98.890 Other specified postprocedural states
CPT/HCPCS: 27560; 71045; 72131; 73502; 73552; 73560; 96372; 96374; 99285; J1200; J1885; J2250; L1830; Z7610; J2270

== ENCOUNTER 2022-07-10 00:12 | Inpatient (IN) | payer OTHER ==
[~2022-07-10] VITALS: Ht 162.6 cm; Wt 108.9 kg
[2022-07-10] MEDS ORDERED: SODIUM CHLORIDE 0.9% 1,000 ML IV ONE (01:15)
[2022-07-10 01:34] LABS: BASOPHILS % 0.9 % (0.0-2.0); EOSINOPHILS % 0.2 % (0.0-5.0); HEMATOCRIT. 33.1 % (36.0-48.0); HEMOGLOBIN. 10.8 g/dL (12.0-16.0); LYMPHOCYTES % 27.2 % (20.0-50.0); MEAN CORPUSCULAR HEMOGLOBIN 33.3 pg (28.0-32.0); MEAN CORPUSCULAR VOLUME 102.3 fL (81.0-99.0); MONOCYTES % 8.9 % (2.0-8.0); NEUTROPHILS % 62.8 % (40.0-76.0); PLATELET 208 x1000/uL (130-400); RED BLOOD CELL COUNT 3.24 mill/uL (4.2-5.4); RED CELL DISTRIBUTION WIDTH 17.3 % (11.6-14.6)
[2022-07-10 01:43] LABS: CHLORIDE 107 mEq/L (98-107)
[2022-07-10 06:14] LABS: BASOPHILS % 0.4 % (0.0-2.0); EOSINOPHILS % 0.2 % (0.0-5.0); HEMATOCRIT. 31.3 % (36.0-48.0); HEMOGLOBIN. 10.2 g/dL (12.0-16.0); LYMPHOCYTES % 32.9 % (20.0-50.0); MEAN CORPUSCULAR HEMOGLOBIN 33.7 pg (28.0-32.0); MEAN CORPUSCULAR VOLUME 103.1 fL (81.0-99.0); MEAN PLATELET VOLUME 7.2 fl (7.4-10.4); MONOCYTES % 8.5 % (2.0-8.0); PLATELET 194 x1000/uL (130-400); RED BLOOD CELL COUNT 3.04 mill/uL (4.2-5.4); RED CELL DISTRIBUTION WIDTH 17.6 % (11.6-14.6)
[2022-07-10 06:23] LABS: CHLORIDE 111 mEq/L (98-107)
[2022-07-10] MEDS ORDERED: CALCIUM GLUCONATE 100MG/ML 10ML VIAL IV NR ×2 (07:15→15:00)
[2022-07-11 04:00] VITALS: BP 136/87
[2022-07-11 05:00] VITALS: BP 135/87
[2022-07-11 08:00] VITALS: BP 145/91
[2022-07-11] MEDS ORDERED: ONDANSETRON HCL 4MG/2ML INJ IV PRN (08:15)
[2022-07-11] MEDS ORDERED: ACETAMINOPHEN 325MG TABLET PO PRN (08:15)
[2022-07-11 12:00] VITALS: BP 168/142
[2022-07-11] MEDS: AMLODIPINE 10MG TABLET PO SCH (14:14)
[2022-07-11 16:00] VITALS: BP 135/78
[2022-07-11 20:00] VITALS: BP 138/81
[2022-07-12] VITALS: BP 125/75
[2022-07-12 04:00] VITALS: BP 135/92
[2022-07-12 08:00] VITALS: BP 185/95
[2022-07-12] MEDS: AMLODIPINE 10MG TABLET PO SCH (10:19)
[2022-07-12 11:30] LABS: CLARITY URINE CLOUDY (CLEAR); COLOR URINE DARK YELLOW (YELLOW); KETONES URINE TRACE (NEGATIVE); LEUKOCYTE ESTERASE URINE 1+ (NEGATIVE); NITRITE URINE POSITIVE (NEGATIVE); OCCULT BLOOD URINE NEGATIVE (NEGATIVE); PH URINE 5.5 (4.5-8.0); PROTEIN URINE TRACE (NEGATIVE); SPECIFIC GRAVITY URINE 1.019 (1.005-1.030); UROBILINOGEN URINE 0.2 E.U./dL (0.2-1.0)
[2022-07-12 12:00] VITALS: BP 135/83
[2022-07-12] MEDS: CEFTRIAXONE 1,000 MG in DEXTROSE 5% WATER 50 ML IV SCH (15:52)
[2022-07-12 16:00] VITALS: BP 139/81
[2022-07-12] MEDS ORDERED: TRAMADOL 50MG TABLET PO PRN (19:30)
[2022-07-12 20:00] VITALS: BP 129/77
[2022-07-12] MEDS ORDERED: NALOXONE HCL 0.4MG/ML VIAL IV PRN (20:15)
[2022-07-12] MEDS ORDERED: TRAZODONE HCL 50MG TABLET PO PRN (21:00)
[2022-07-12] MEDS: FUROSEMIDE 40MG TABLET PO SCH (21:07)
[2022-07-12] MEDS: RISPERIDONE 1MG TABLET PO SCH (21:07)
[2022-07-12] MEDS: HYDROCODONE/ACETAMINOPHEN 5/325MG TABLET PO PRN (21:07)
[2022-07-13 04:00] VITALS: BP 123/75
[2022-07-13] MEDS: LEVOTHYROXINE SODIUM 200MCG TABLET PO SCH (06:24)
[2022-07-13] MEDS: HYDROCODONE/ACETAMINOPHEN 5/325MG TABLET PO PRN ×3 (06:25→21:22)
[2022-07-13 08:00] VITALS: BP 139/83
[2022-07-13] MEDS: POTASSIUM CHLORIDE 10MEQ TABLET SR PO SCH (09:00)
[2022-07-13] MEDS: FUROSEMIDE 40MG TABLET PO SCH ×2 (09:00→18:52)
[2022-07-13] MEDS: RISPERIDONE 1MG TABLET PO SCH ×2 (09:00→21:21)
[2022-07-13] MEDS: DOCUSATE SODIUM 100MG CAPSULE PO SCH (09:00)
[2022-07-13] MEDS: FERROUS SULFATE 325MG TABLET PO SCH ×2 (09:00→17:00)
[2022-07-13] MEDS: AMLODIPINE 10MG TABLET PO SCH (09:01)
[2022-07-13 12:00] VITALS: BP 118/85
[2022-07-13 16:00] VITALS: BP 144/77
[2022-07-13] MEDS: PREDNISONE 20MG TABLET PO SCH (18:52)
[2022-07-13] MEDS: CEFTRIAXONE 1,000 MG in DEXTROSE 5% WATER 50 ML IV SCH (18:58)
[2022-07-13 20:00] VITALS: BP 122/58
[2022-07-14 04:00] VITALS: BP 143/81
[2022-07-14] MEDS: HYDROCODONE/ACETAMINOPHEN 5/325MG TABLET PO PRN ×3 (04:51→19:30)
[2022-07-14 07:41] LABS: FOLIC ACID (FOLATE) SERUM 2.7 ng/mL (>5.38)
[2022-07-14 08:00] VITALS: BP 146/85
[2022-07-14] MEDS: DOCUSATE SODIUM 100MG CAPSULE PO SCH (09:00)
[2022-07-14] MEDS: FERROUS SULFATE 325MG TABLET PO SCH ×2 (09:00→17:00)
[2022-07-14] MEDS: RISPERIDONE 1MG TABLET PO SCH ×2 (09:22→21:52)
[2022-07-14] MEDS: LEVOTHYROXINE SODIUM 200MCG TABLET PO SCH (09:22)
[2022-07-14] MEDS: FUROSEMIDE 40MG TABLET PO SCH ×2 (09:22→19:26)
[2022-07-14] MEDS: AMLODIPINE 10MG TABLET PO SCH (09:22)
[2022-07-14] MEDS: POTASSIUM CHLORIDE 10MEQ TABLET SR PO SCH (09:24)
[2022-07-14] MEDS: PREDNISONE 20MG TABLET PO SCH (09:24)
[2022-07-14 12:00] VITALS: BP 146/81
[2022-07-14] MEDS ORDERED: FOLIC ACID 1MG TABLET PO SCH (12:30)
[2022-07-14] MEDS: CEFTRIAXONE 1,000 MG in DEXTROSE 5% WATER 50 ML IV SCH (14:00)
[2022-07-14] MEDS: FOLIC ACID 1MG TABLET PO SCH (14:21)
[2022-07-14 16:00] VITALS: BP 143/80
[2022-07-14 20:00] VITALS: BP 131/80
[2022-07-15] VITALS: BP 147/80
[2022-07-15] MEDS: LEVOTHYROXINE SODIUM 200MCG TABLET PO SCH (07:26)
[2022-07-15 08:00] VITALS: BP 145/82
[2022-07-15] MEDS: FERROUS SULFATE 325MG TABLET PO SCH ×2 (09:08→09:27)
[2022-07-15] MEDS: FOLIC ACID 1MG TABLET PO SCH (09:08)
[2022-07-15] MEDS: DOCUSATE SODIUM 100MG CAPSULE PO SCH (09:08)
[2022-07-15] MEDS: PREDNISONE 20MG TABLET PO SCH (09:09)
[2022-07-15] MEDS: POTASSIUM CHLORIDE 10MEQ TABLET SR PO SCH (09:09)
[2022-07-15] MEDS: AMLODIPINE 10MG TABLET PO SCH (09:09)
[2022-07-15] MEDS: FUROSEMIDE 40MG TABLET PO SCH ×2 (09:09→19:08)
[2022-07-15] MEDS: RISPERIDONE 1MG TABLET PO SCH ×2 (09:09→20:33)
[2022-07-15] MEDS: HYDROCODONE/ACETAMINOPHEN 5/325MG TABLET PO PRN ×3 (09:28→19:34)
[2022-07-15 12:00] VITALS: BP 141/73
[2022-07-15] MEDS: CEFTRIAXONE 1,000 MG in DEXTROSE 5% WATER 50 ML IV SCH (15:54)
[2022-07-15 16:00] VITALS: BP 135/67
[2022-07-15 20:00] VITALS: BP 102/59
[2022-07-16] VITALS: BP 123/70
[2022-07-16] MEDS: HYDROCODONE/ACETAMINOPHEN 5/325MG TABLET PO PRN ×4 (01:25→21:25)
[2022-07-16 04:00] VITALS: BP 126/69
[2022-07-16] MEDS: LEVOTHYROXINE SODIUM 200MCG TABLET PO SCH (06:23)
[2022-07-16 08:00] VITALS: BP 121/67
[2022-07-16] MEDS: FERROUS SULFATE 325MG TABLET PO SCH ×2 (09:00→17:00)
[2022-07-16] MEDS: POTASSIUM CHLORIDE 10MEQ TABLET SR PO SCH (10:41)
[2022-07-16] MEDS: FUROSEMIDE 40MG TABLET PO SCH ×2 (10:42→17:49)
[2022-07-16] MEDS: FOLIC ACID 1MG TABLET PO SCH (10:42)
[2022-07-16] MEDS: PREDNISONE 20MG TABLET PO SCH (10:42)
[2022-07-16] MEDS: AMLODIPINE 10MG TABLET PO SCH (10:42)
[2022-07-16] MEDS: DOCUSATE SODIUM 100MG CAPSULE PO SCH (10:43)
[2022-07-16] MEDS: RISPERIDONE 1MG TABLET PO SCH ×2 (10:43→21:25)
[2022-07-16 12:00] VITALS: BP 155/63
[2022-07-16] MEDS: CEFTRIAXONE 1,000 MG in DEXTROSE 5% WATER 50 ML IV SCH (14:22)
[2022-07-16 16:00] VITALS: BP 126/77
[2022-07-16 20:00] VITALS: BP 114/70
[2022-07-17] VITALS: BP 135/76
[2022-07-17 04:00] VITALS: BP 140/76
[2022-07-17] MEDS: LEVOTHYROXINE SODIUM 200MCG TABLET PO SCH (06:22)
[2022-07-17] MEDS: HYDROCODONE/ACETAMINOPHEN 5/325MG TABLET PO PRN ×2 (06:26→13:28)
[2022-07-17 08:00] VITALS: BP 138/74
[2022-07-17] MEDS: PREDNISONE 20MG TABLET PO SCH (08:10)
[2022-07-17] MEDS: DOCUSATE SODIUM 100MG CAPSULE PO SCH (08:10)
[2022-07-17] MEDS: AMLODIPINE 10MG TABLET PO SCH (08:10)
[2022-07-17] MEDS: FUROSEMIDE 40MG TABLET PO SCH ×2 (08:10→17:00)
[2022-07-17] MEDS: RISPERIDONE 1MG TABLET PO SCH ×2 (08:11→21:12)
[2022-07-17] MEDS: FOLIC ACID 1MG TABLET PO SCH (08:11)
[2022-07-17] MEDS: POTASSIUM CHLORIDE 10MEQ TABLET SR PO SCH (08:11)
[2022-07-17] MEDS: FERROUS SULFATE 325MG TABLET PO SCH ×2 (09:00→17:00)
[2022-07-17] MEDS: CEFTRIAXONE 1,000 MG in DEXTROSE 5% WATER 50 ML IV SCH (14:04)
[2022-07-17 15:52] VITALS: BP 134/82
[2022-07-17 20:00] VITALS: BP 136/76
[2022-07-18] VITALS (7 sets, daily range): BP systolic 125–139; BP diastolic 65–79
[2022-07-18] MEDS: LEVOTHYROXINE SODIUM 200MCG TABLET PO SCH (08:13)
[2022-07-18] MEDS: POTASSIUM CHLORIDE 10MEQ TABLET SR PO SCH (08:13)
[2022-07-18] MEDS: DOCUSATE SODIUM 100MG CAPSULE PO SCH (08:13)
[2022-07-18] MEDS: RISPERIDONE 1MG TABLET PO SCH (08:13)
[2022-07-18] MEDS: AMLODIPINE 10MG TABLET PO SCH (08:14)
[2022-07-18] MEDS: FUROSEMIDE 40MG TABLET PO SCH (08:14)
[2022-07-18] MEDS: PREDNISONE 20MG TABLET PO SCH (08:14)
[2022-07-18] MEDS: FOLIC ACID 1MG TABLET PO SCH (08:14)
[2022-07-18] MEDS: HYDROCODONE/ACETAMINOPHEN 5/325MG TABLET PO PRN ×2 (08:15→17:19)
[2022-07-18] MEDS: FERROUS SULFATE 325MG TABLET PO SCH (09:00)
[2022-07-18 15:27] LABS: BASOPHILS % 0.3 % (0.0-2.0); CHLORIDE 102 mEq/L (98-107); HEMATOCRIT. 28.7 % (36.0-48.0); HEMOGLOBIN. 9.4 g/dL (12.0-16.0); LYMPHOCYTES % 14.3 % (20.0-50.0); MEAN CORPUSCULAR HEMOGLOBIN 33.2 pg (28.0-32.0); MEAN CORPUSCULAR VOLUME 101.2 fL (81.0-99.0); MEAN PLATELET VOLUME 7.9 fl (7.4-10.4); MONOCYTES % 6.9 % (2.0-8.0); NEUTROPHILS % 78.5 % (40.0-76.0); PLATELET 151 x1000/uL (130-400); RED BLOOD CELL COUNT 2.84 mill/uL (4.2-5.4); RED CELL DISTRIBUTION WIDTH 15.9 % (11.6-14.6)
[2022-07-19 17:06] LABS: 25-HYDROXY VITAMIN D3 4.6 ng/mL (.)
== END 2022-07-18 17:29 | DRG 48 ==
LOC: ER 00:12 → MICUSO 08:55 → EDBEDREQ 09:03 → EDBEDREQTM 09:03 → EDBEDREQ 09:04 → 6EST 07-11 04:12
PROVIDERS: ADMIT Internal Medicine; ATTEND Internal Medicine
DX: G90.8 Other disorders of autonomic nervous system (principal); E43 Unspecified severe protein-calorie malnutrition; I50.32 Chronic diastolic (congestive) heart failure; L89.899 Pressure ulcer of other site, unspecified stage; E83.51 Hypocalcemia; I11.0 Hypertensive heart disease with heart failure; E11.9 Type 2 diabetes mellitus without complications; E03.9 Hypothyroidism, unspecified; D64.9 Anemia, unspecified; E53.8 Deficiency of other specified B group vitamins; Z20.822 Contact with and (suspected) exposure to COVID-19; S83.012A Lateral subluxation of left patella, initial encounter; E66.9 Obesity, unspecified; J44.9 Chronic obstructive pulmonary disease, unspecified; N39.0 Urinary tract infection, site not specified; G40.909 Epilepsy, unspecified, not intractable, without status epilepticus; R29.6 Repeated falls; R26.9 Unspecified abnormalities of gait and mobility; R74.01 Elevation of levels of liver transaminase levels; M17.12 Unilateral primary osteoarthritis, left knee; G82.20 Paraplegia, unspecified; F17.200 Nicotine dependence, unspecified, uncomplicated; Z91.018 Allergy to other foods; Z74.01 Bed confinement status; Z68.41 Body mass index [BMI] 40.0-44.9, adult; Z88.5 Allergy status to narcotic agent; Z88.6 Allergy status to analgesic agent; Z90.710 Acquired absence of both cervix and uterus; Z90.49 Acquired absence of other specified parts of digestive tract; Z82.49 Family history of ischemic heart disease and other diseases of the circulatory system; X58.XXXA Exposure to other specified factors, initial encounter; Y93.89 Activity, other specified; Y92.89 Other specified places as the place of occurrence of the external cause; Y99.8 Other external cause status
CPT/HCPCS: 36415; 71045; 73562; 80048; 80053; 81003; 82306; 82550; 82607; 82746; 82962; 83880; 84443; 84484; 85025; 87426; 93005; 93970; 97110; 97116; 97162; 97166; 97530; 97535; 99285; A6261; J0610; J0696; J7030; J7060; J7512